=== PATIENT | female | born 1965 | race African-American/Black ===

== ENCOUNTER 2021-03-10 15:08 | Emergency (ER) | payer OTHER ==
[~2021-03-10] VITALS: Ht 167.6 cm; Wt 64.0 kg
[2021-03-10] MEDS ORDERED: ACETAMINOPHEN 325MG TABLET PO NR (16:15)
[2021-03-10 17:16] LABS: BASOPHILS % 0.4 % (0.0-2.0); EOSINOPHILS % 1.9 % (0.0-5.0); HEMATOCRIT. 40.7 % (36.0-48.0); HEMOGLOBIN. 13.7 g/dL (12.0-16.0); LYMPHOCYTES % 20.3 % (20.0-50.0); MEAN CORPUSCULAR HEMOGLOBIN 29.8 pg (28.0-32.0); MEAN CORPUSCULAR VOLUME 88.3 fL (81.0-99.0); MEAN PLATELET VOLUME 7.1 fl (7.4-10.4); MONOCYTES % 10.1 % (2.0-8.0); NEUTROPHILS % 67.3 % (40.0-76.0); PLATELET 365 x1000/uL (130-400); RED BLOOD CELL COUNT 4.61 mill/uL (4.2-5.4); RED CELL DISTRIBUTION WIDTH 13.8 % (11.6-14.6)
[2021-03-10 17:20] LABS: CHLORIDE 109 mEq/L (98-107)
[2021-03-10] MEDS ORDERED: ACET-2708 PO (17:43)
[2021-03-10 17:52] VITALS: BP 140/78
== END 2021-03-10 17:52 ==
LOC: ER 15:08
DX: R42 Dizziness and giddiness (principal); M54.9 Dorsalgia, unspecified; E11.9 Type 2 diabetes mellitus without complications
CPT/HCPCS: 36415; 80053; 82962; 85025; 93005; 99284

== ENCOUNTER 2022-01-19 20:32 | Emergency (ER) | payer OTHER ==
[~2022-01-19] VITALS: Ht 165.1 cm; Wt 62.0 kg
[~2022-01-19 20:32] MED LIST: ACET-2708 PO
[2022-01-20 01:25] LABS: BASOPHILS % 1.1 % (0.0-2.0); HEMATOCRIT. 41.2 % (36.0-48.0); HEMOGLOBIN. 13.5 g/dL (12.0-16.0); LYMPHOCYTES % 44.5 % (20.0-50.0); MEAN CORPUSCULAR HEMOGLOBIN 29.1 pg (28.0-32.0); MEAN CORPUSCULAR VOLUME 88.7 fL (81.0-99.0); MEAN PLATELET VOLUME 7.2 fl (7.4-10.4); MONOCYTES % 9.9 % (2.0-8.0); NEUTROPHILS % 43.5 % (40.0-76.0); PLATELET 339 x1000/uL (130-400); RED BLOOD CELL COUNT 4.65 mill/uL (4.2-5.4); RED CELL DISTRIBUTION WIDTH 13.8 % (11.6-14.6)
[2022-01-20 02:06] LABS: CHLORIDE 106 mEq/L (98-107)
[2022-01-20 03:30] VITALS: BP 110/90
== END 2022-01-20 03:40 | disposition home or self-care (01) ==
LOC: ER 20:32
DX: R07.89 Other chest pain (principal); I10 Essential (primary) hypertension; E11.9 Type 2 diabetes mellitus without complications
CPT/HCPCS: 36415; 71045; 80053; 83880; 84484; 85025; 93005; 99285

== ENCOUNTER 2024-04-21 03:15 | Emergency (ER) | payer MEDICAID, OTHER ==
[~2024-04-21] VITALS: Ht 165.1 cm; Wt 70.0 kg
[2024-04-21 03:20] VITALS: BP 126/70; PULSE 91; RESP 18; TEMP 98.1; O2SAT 100
[2024-04-21] MEDS ORDERED: TOPUD PO (03:45)
[2024-04-21] MEDS ORDERED: ACETAMINOPHEN 325MG TABLET PO ONE (03:45)
== END 2024-04-21 03:59 | disposition home or self-care (01) ==
LOC: ER 03:15
DX: M79.676 Pain in unspecified toe(s) (principal); E78.00 Pure hypercholesterolemia, unspecified; I10 Essential (primary) hypertension
CPT/HCPCS: 99283